=== PATIENT | female | born 1975 | race Caucasian/White ===

== ENCOUNTER 2017-05-31 12:45 | Emergency (ER) | payer OTHER ==
[~2017-05-31] VITALS: Ht 160 cm; Wt 66.7 kg
[~2017-05-31 12:45] MED LIST: HYDR-3240 PO; IBUP-1222 PO; PREN1TAB79 PO
[2017-05-31] MEDS ORDERED: MORPHINE SULFATE 4 MG/ML, 1ML IVPush PRN (13:30)
[2017-05-31] MEDS ORDERED: SODIUM CHLORIDE 0.9% 1,000ML IVBOLUS ONE (13:30)
[2017-05-31] MEDS ORDERED: ONDANSETRON 2MG/ML, 2ML IVPush ONE (13:30)
[2017-05-31] MEDS ORDERED: SODIUM CHLORIDE FLUSH 10ML SYR IVF ONE (13:30)
[2017-05-31 13:45] LABS: HEMOGLOBIN 13.4 g/dL (11.7-16.4); WHITE BLOOD COUNT 11.5 x10^3/uL (3.4-10)
[2017-05-31 13:54] LABS: BLOOD UREA NITROGEN 17 mg/dL (7-18)
[2017-05-31] MEDS ORDERED: MORPHINE SULFATE 4 MG/ML, 1ML ONE (13:54)
[2017-05-31] MEDS ORDERED: ONDANSETRON 2MG/ML, 2ML ONE (13:55)
[2017-05-31 14:00] LABS: ASPARTATE AMINO TRANSFERASE 24 U/L (15-37)
[2017-05-31 15:22] VITALS: BP 124/74
== END 2017-05-31 15:34 | disposition home or self-care (01) ==
LOC: ED 15:28
DX: K52.9 Noninfective gastroenteritis and colitis, unspecified (principal); R10.84 Generalized abdominal pain; R19.7 Diarrhea, unspecified; Z90.49 Acquired absence of other specified parts of digestive tract
CPT/HCPCS: 36415; 74020; 80053; 83690; 84703; 85025; 96361; 96374; 99285; J2405; J7030

== ENCOUNTER 2017-05-31 20:14 | Inpatient (IN) | payer OTHER ==
[~2017-05-31] VITALS: Ht 160 cm; Wt 69.1 kg
[2017-05-31] MEDS ORDERED: HYDROmorphone 1 MG/ML, 1ML ONE (20:50)
[2017-05-31] MEDS ORDERED: SODIUM CHLORIDE FLUSH 10ML SYR IVF ONE (21:00)
[2017-05-31] MEDS ORDERED: HYDROmorphone 1 MG/ML, 1ML IVPush PRN (21:00)
[2017-05-31] MEDS ORDERED: SODIUM CHLORIDE 0.9% 1,000ML IVBOLUS ONE (21:00)
[2017-05-31] MEDS ORDERED: OMNIPAQUE 350 MG/ML, 100ML BOTTLE ONE (21:32)
[2017-05-31] MEDS ORDERED: ONDANSETRON 2MG/ML, 2ML ONE (21:37)
[2017-05-31] MEDS ORDERED: ONDANSETRON 2MG/ML, 2ML IVPush ONE (22:00)
[2017-05-31 23:20] VITALS: BP 118/63
[2017-05-31] MEDS ORDERED: CEFTRIAXONE PMX 1GM/50ML 50 ML IV SCH (23:30)
[2017-05-31] MEDS ORDERED: METRONIDAZOLE PMX 500MG/100ML 100 ML IV SCH (23:30)
[2017-06-01] MEDS ORDERED: ONDANSETRON 2MG/ML, 2ML IVPush PRN
[2017-06-01] MEDS: SODIUM CHLORIDE 0.9% 1,000 ML IV SCH ×2 (01:12→08:11)
[2017-06-01] MEDS: MEROPENEM 1 GM in SODIUM CHLORIDE 0.9% 50 ML IV SCH ×3 (01:12→15:58)
[2017-06-01 01:37] VITALS: BP 96/57
[2017-06-01] MEDS: HYDROmorphone 2 MG/ML, 1ML IVPush PRN ×4 (01:49→20:56)
[2017-06-01 05:51] LABS: HEMATOCRIT 35.5 % (34.6-47.8); HEMOGLOBIN 11.7 g/dL (11.7-16.4); WHITE BLOOD COUNT 10.5 x10^3/uL (3.4-10)
[2017-06-01 06:02] LABS: ASPARTATE AMINO TRANSFERASE 169 U/L (15-37); BLOOD UREA NITROGEN 16 mg/dL (7-18)
[2017-06-01 07:42] VITALS: BP 101/60
[2017-06-01] MEDS: ENOXAPARIN 40 MG/0.4 ML SQ SCH (08:12)
[2017-06-01] MEDS: D5%-0.9% NACL 1,000 ML IV SCH ×2 (08:33→17:37)
[2017-06-01] MEDS ORDERED: DEXTROSE 4 GM TAB.CHEW PO PRN (09:00)
[2017-06-01] MEDS ORDERED: DEXTROSE 50%, 50ML SYRINGE IVPush PRN (09:00)
[2017-06-01] MEDS ORDERED: GLUCAGON 1 MG IM PRN (09:00)
[2017-06-01] MEDS: SODIUM CHLORIDE FLUSH 10ML SYR IVF SCH ×2 (09:43→19:49)
[2017-06-01] MEDS ORDERED: DIPHENHYDRAMINE 50 MG/ML, 1ML IVPush PRN (11:30)
[2017-06-01] MEDS ORDERED: ASA/APAP/ CAFFEINE TABLET PO PRN (11:30)
[2017-06-01] MEDS ORDERED: PROMETHAZINE 25 MG/ML, 1ML IM PRN ×2 (11:30→14:00)
[2017-06-01] MEDS ORDERED: PROMETHAZINE 25 MG/ML, 1ML ONE (14:10)
[2017-06-01 14:45] VITALS: BP 101/61
[2017-06-01 20:57] VITALS: BP 108/69
[2017-06-01] MEDS: LACTOBACILLUS CHEW TABLET PO SCH (22:21)
[2017-06-02 03:09] VITALS: BP 105/67
[2017-06-02 05:35] LABS: HEMATOCRIT 33.5 % (34.6-47.8); HEMOGLOBIN 11.1 g/dL (11.7-16.4); WHITE BLOOD COUNT 8.3 x10^3/uL (3.4-10)
[2017-06-02 06:02] LABS: ASPARTATE AMINO TRANSFERASE 50 U/L (15-37); BLOOD UREA NITROGEN 7 mg/dL (7-18)
[2017-06-02] MEDS: LACTOBACILLUS CHEW TABLET PO SCH ×3 (06:24→16:25)
[2017-06-02] MEDS: D5%-0.9% NACL 1,000 ML IV SCH ×2 (06:24)
[2017-06-02 07:22] VITALS: BP 103/60
[2017-06-02] MEDS: MEROPENEM 1 GM in SODIUM CHLORIDE 0.9% 50 ML IV SCH ×3 (08:10→16:26)
[2017-06-02] MEDS: ENOXAPARIN 40 MG/0.4 ML SQ SCH (08:11)
[2017-06-02] MEDS: SODIUM CHLORIDE FLUSH 10ML SYR IVF SCH (08:12)
[2017-06-02] MEDS ORDERED: SODIUM CHLORIDE 0.9% 1,000 ML IV SCH (09:13)
[2017-06-02] MEDS ORDERED: POTASSIUM CHLORIDE 20 MEQ TAB.ER.PRT PO ONE (09:30)
[2017-06-02 14:03] VITALS: BP 118/73
[2017-06-02] MEDS ORDERED: TRAM50TA2 PO (17:27)
[2017-06-02] MEDS ORDERED: ACID1TAB7 PO (17:27)
[2017-06-02] MEDS ORDERED: AMOX1TAB61 PO (17:27)
[2017-06-02 18:45] VITALS: BP 116/70
== END 2017-06-02 19:30 | disposition home or self-care (01) | DRG 392 ==
LOC: ED 22:09 → EDIP 22:24 → 4NOR 23:16
PROVIDERS: ADMIT Internal Medicine; ATTEND Internal Medicine
DX: K52.9 Noninfective gastroenteritis and colitis, unspecified (principal); E44.1 Mild protein-calorie malnutrition; E16.2 Hypoglycemia, unspecified; G43.909 Migraine, unspecified, not intractable, without status migrainosus; D72.829 Elevated white blood cell count, unspecified; Z90.49 Acquired absence of other specified parts of digestive tract; Z68.27 Body mass index [BMI] 27.0-27.9, adult; Z88.2 Allergy status to sulfonamides; Z88.8 Allergy status to other drugs, medicaments and biological substances; Z91.040 Latex allergy status
CPT/HCPCS: 36415; 74177; 80053; 82962; 85025; 87324; 96361; 96374; J1170; J2185; J2405; J2550; J7042; Q9967; J7030